=== PATIENT | male | born 1940 | race Caucasian/White ===

== ENCOUNTER 2019-03-03 11:26 | Outpatient (CLI) | payer MEDICARE ==
--- NOTE | 2019-03-03 13:18 | CT Report ---
Reason: HX TOBACCO SMOKER Procedure Date: 03/03/2019 Accession Number: [id number] / [id number] Procedure: CT - Low Dose Lung Cancer Screen CPT Code: Final Report FULL RESULT: EXAM CT LUNG SCREEN EXAM DATE: 03/03/2019 11:45 AM. HISTORY: 78-year-old patient with [id number] smoking history. Currently smoking: No. Years since quittin. COMPARISON: None. TECHNIQUE: CT examination of the entire thorax without contrast was performed using low-dose technique. Thin section coronal, axial, sagittal and MIP axial images were obtained. In accordance with CT protocol optimization, one or more of the following dose reduction techniques were utilized for this exam: automated exposure control, adjustment of mA and/or KV based on patient size, or use of iterative reconstructive technique. FINDINGS: Nodules: Right upper lobe: 3 mm nodule image 36 series 4. 2 mm nodule image 54. 2 mm perifissural nodule image 60. Right middle lobe: None. Right lower lobe: None. Left upper lobe: None. Left lower lobe: 2 mm nodule image 85. Emphysema: Mild. Pleura: Unremarkable. Aorta: Mildly calcified. Mediastinum: Unremarkable. Coronary calcifications: Mild. Other pulmonary findings: Subsegmental scarring or atelectasis of the lingula is noted. Peripheral left lower lobe basilar interstitial thickening, possibly scarring is seen along the left costophrenic sulcus, see image 49 series 6. Other extrapulmonary findings: None. IMPRESSION: Lung-RADS ASSESSMENT CATEGORY: 2 - benign appearance of behavior. Probability of malignancy: Less than 1%. RECOMMENDATION: Continue annual low-dose CT. [facility]
== END 2019-03-03 11:27 | disposition home or self-care (01) ==
LOC: EDBD 11:26 → DI 11:26
PROVIDERS: ATTEND Student in an Organized Health Care Education/Training Program
DX: Z12.2 Encounter for screening for malignant neoplasm of respiratory organs (principal); J43.9 Emphysema, unspecified; Z87.891 Personal history of nicotine dependence